=== PATIENT | female | born 2000 | race Hispanic/Latino ===

== ENCOUNTER 2020-04-08 11:30 | Emergency (ER) | payer OTHER, SELFPAY ==
[2020-04-08 11:42] VITALS: BP 127/92; PULSE 110; RESP 16; TEMP 36.6; O2SAT 100
--- NOTE | 2020-04-08 12:07 | ED.WOUNDLAC ---
HPI - Wound/Laceration General Chief Complaint: Wound/Laceration Stated Complaint: Spider bite Time Seen by Provider: 04/08/20 11:40 Source: patient Mode of arrival: ambulatory Limitations: no limitations History of Present Illness HPI narrative: This patient is a 19 year old female who presents for concern of a possible brown recluse bite. She states just prior to coming to ER she saw a brown recluse on her chest . She hit it on her chest and she does not think that it bit her. She is not sure but she does have a red rash and mild swelling to her chest. She denies fever, chills, nausea or vomiting. She reports her rash is a burning pain. Her last tetanus was in 2011. Related Data Allergies Allergy/AdvReac Type Severity Reaction Status Date / Time No Known Allergies Allergy Verified 04/08/20 12:13 Review of Systems Review of Systems: All systems reviewed & are unremarkable except as noted in HPI and below Constitutional: Constitutional: Denies chills and Denies fever(s) Integumentary/Breasts: Skin/Breast: Reports rash PMFSH Past Medical History Medical History (Updated 04/08/20 @ 12:13 by Maraí Amaral MD) Patient denies medical problems Social History Social History Gender identity (if verbalized by the patient): Female Exam Const: General: no acute distress and alert Orientation/consciousness: patient oriented x3 HENMT: Head: normocephalic and atraumatic Face and sinus: face symmetric Throat: posterior oropharynx normal Chest: Other: upper mid chest with erythematous papular rash , with scattered whelp . Resp: Effort & Inspection: normal respiratory effort and no retractions Auscultation: clear to auscultation bilaterally Cardio: Rate: regular rate Rhythm: regular rhythm Heart sounds: no murmurs Neuro: General: patient oriented x3 and moves all extremities Extrem: General: no pedal edema Course Reevaluation(s) Reevaluation #1: I Discussed with patient that this appears to be local reaction. Date: 04/08/20 Time: 12:08 Vital Signs Vital signs: Vital Signs Temperature 97.8 F 04/08/20 11:42 Pulse Rate 110 H 04/08/20 11:42 Respiratory Rate 16 04/08/20 11:42 Blood Pressure 127/92 H 04/08/20 11:42 Pulse Oximetry 100 04/08/20 11:42 Temperature 97.8 F 04/08/20 11:42 Pulse Rate 110 H 04/08/20 11:42 Respiratory Rate 16 04/08/20 11:42 Blood Pressure 127/92 H 04/08/20 11:42 Pulse Oximetry 100 04/08/20 11:42 Discharge Plan Discharge Clinical Impression: Allergic reaction to spider bite Qualifiers: Encounter type: initial encounter Injury intent: accidental or unintentional Qualified Code(s): T63.301A - Toxic effect of unspecified spider venom, accidental (unintentional), initial encounter Patient Disposition: Home, Self-Care Condition: Stable Instructions: Antibiotic Form, Insect Bite or Sting (ED), Brown Recluse Spider Bite (ED) Additional Instructions: Today you were seen for possible spider bite. You appear to have a local reaction to your chest. I recommend you take medication such as benadryl or claritin. You can also place steroid cream to chest. Prescriptions: New cephalexin [Keflex] 500 mg capsule 500 mg PO Q12H Qty: 14 RF: 0 Follow-up/Referrals: Jennifer,NASEEM Aiken [Primary Care Provider] - Discharge Date/Time: 04/08/20 12:35
[2020-04-08] MEDS: TETANUS,DIPHTHERIA,AC PERTUSSIS ADULT (0.5 ML) BOOSTRIX IM (12:30)
== END 2020-04-08 12:35 | disposition home or self-care (01) ==
PROVIDERS: Emergency Provider General Practice; PCP Registered Nurse
DX: T63.331A Toxic effect of venom of brown recluse spider, accidental (unintentional), initial encounter (principal); Z23 Encounter for immunization
CPT/HCPCS: 90471; 90715; 99283

== ENCOUNTER 2020-07-29 12:23 | Emergency (ER) | payer OTHER, SELFPAY ==
[2020-07-29 12:35] VITALS: BP 121/82; PULSE 103; RESP 16; TEMP 37.6; O2SAT 100
--- NOTE | 2020-07-29 12:49 | ED.LOWEXIN ---
HPI - Extremity Injury (Lower) General Chief Complaint: Extremity Injury, Lower Stated Complaint: Left foot Injury Time Seen by Provider: 07/29/20 12:49 Source: patient and RN notes reviewed Mode of arrival: ambulatory Limitations: no limitations History of Present Illness HPI Narrative: 20 year old female who present to express care with complaints of stepping on dirty michael nail about one hour ago. Patient states that nail was michael and dirty, states she cleansed area with antiseptic spray after injury. Patient is concerned about infection and requests antibiotic, states that her tetanus is up to date. Patient has small puncture wound to her left foot below her 4th toe vaughn aspect with mild tenderness on palpation, no drainage noted. MD complaint: foot injury (left) Onset (ago): hour(s) (1) Injury: Left: foot Type of Injury: puncture wound Place: home Severity: mild Relieving factors: rest Exacerbating factors: weight bearing Context: stepped on nail Other symptoms: none Treatments prior to arrival: other (cleansed) Related Data Allergies Allergy/AdvReac Type Severity Reaction Status Date / Time No Known Allergies Allergy Verified 04/08/20 12:13 Review of Systems Review of Systems: Narrative: CONSTITUTIONAL: Denies fever, chills, or sweats. EYES: Denies visual changes, redness, or discharge. ENT: Denies rhinorrhea, congestion, sore throat, or otalgia. CARDIOVASCULAR: Denies chest pain, palpitations, or edema. RESPIRATORY: Denies cough or dyspnea. GASTROINTESTINAL: Denies abdominal pain, nausea, vomiting, or diarrhea. GENITOURINARY: Denies dysuria or hematuria. SKIN: Denies rash or itching.puncture wound to vaughn aspect left foot under 4th toe region, no drainage noted. MUSCULOSKELETAL: Denies back pain, joint pain, or myalgia. NEUROLOGIC: Denies headache, numbness, or weakness. PSYCHIATRIC: Denies anxiety or depression. 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 There is no relevant family history pertinent to the presenting complaint Exam Narrative: Exam Narrative: GENERAL: Well-appearing, well-nourished, and in no acute distress. HEAD: Normocephalic, atraumatic. EYES: PERRLA and EOMI. ENT: Nares clear, no rhinorrhea or epistaxis. Mucous membranes moist. NECK: Supple. CHEST: Clear to auscultation. No respiratory distress. HEART: Regular rate and rhythm. No murmur heard. Normal peripheral pulses. ABDOMEN: Soft, nontender, nondistended, normal active bowel sounds. EXTREMITIES: Normal range of motion. No edema. SKIN: Warm, dry, no rash. tenderness from stepping on nail with left foot, puncture area to left vaughn foot below 4th toe, no drainage or acute redness noted no acute swelling. NEURO: No focal deficits. Alert and oriented x3. Course Vital Signs Vital signs: Vital Signs Temperature 37.6 C H 07/29/20 12:35 Pulse Rate 103 H 07/29/20 12:35 Respiratory Rate 16 07/29/20 12:35 Blood Pressure 121/82 07/29/20 12:35 Pulse Oximetry 100 07/29/20 12:35 Temperature 37.6 C H 07/29/20 12:35 Pulse Rate 103 H 07/29/20 12:35 Respiratory Rate 16 07/29/20 12:35 Blood Pressure 121/82 07/29/20 12:35 Pulse Oximetry 100 07/29/20 12:35 MDM - Extremity Injury (Lower) Differential Diagnosis Differential diagnosis: Likely puncture wound of foot (Left foot skye
== END 2020-07-29 13:03 | disposition home or self-care (01) ==
PROVIDERS: Emergency Provider Registered Nurse; PCP Registered Nurse
DX: S91.332A Puncture wound without foreign body, left foot, initial encounter (principal); W45.0XXA Nail entering through skin, initial encounter
CPT/HCPCS: 99213; G0463

== ENCOUNTER 2020-10-14 17:01 | Emergency (ER) | payer OTHER, SELFPAY ==
[2020-10-14 17:08] VITALS: BP 119/79; PULSE 105; RESP 16; TEMP 37.7; O2SAT 100
--- NOTE | 2020-10-14 17:26 | ED.WOUNDLAC ---
HPI - Wound/Laceration General Chief Complaint: Wound/Laceration Stated Complaint: laceration right index finger Time Seen by Provider: 10/14/20 17:15 Source: patient Mode of arrival: ambulatory Limitations: no limitations History of Present Illness HPI narrative: 20-year-old female who presents to [facility] with complaints of laceration to right middle finger dorsal aspect near DIP which occurred within the past hour at home when she was cleaning her mirror and cut it on edge. Patient has full mobility of her right third finger with no complaints of tingling or numbness to her right third finger, nail bed blanches briskly with finger warm and pink. Patient denies any acute bleeding with bleeding presently under control with bandage to finger. Patient reports that her tetanus shot is UTD. Onset (ago): hour(s) (within past hour) Location: other Extremity Location: Right: hand (right middle finger dorsal near DIP) Place: home Patient tetanus UTD: Yes Context: accidental Associated symptoms: none Treatments prior to arrival: bandage Related Data Allergies Allergy/AdvReac Type Severity Reaction Status Date / Time No Known Allergies Allergy Verified 10/14/20 17:24 Review of Systems Review of Systems: Narrative: CONSTITUTIONAL: Denies fever, chills, or sweats. EYES: Denies visual changes, redness, or discharge. ENT: Denies rhinorrhea, congestion, sore throat, or otalgia. CARDIOVASCULAR: Denies chest pain, palpitations, or edema. RESPIRATORY: Denies cough or dyspnea. GASTROINTESTINAL: Denies abdominal pain, nausea, vomiting, or diarrhea. GENITOURINARY: Denies dysuria or hematuria. SKIN: Denies rash or itching.positive for laceration to right middle finger dorsal aspect at DIP with minimal subcutaneous depth MUSCULOSKELETAL: Denies back pain, joint pain, or myalgia. NEUROLOGIC: Denies headache, numbness, or weakness. PSYCHIATRIC: Positive for anxiety or depression. 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 There is no relevant family history pertinent to the presenting complaint Exam Narrative: Exam Narrative: GENERAL: Well-appearing, well-nourished, and in no acute distress. HEAD: Normocephalic, atraumatic. EYES: PERRLA and EOMI. ENT: Nares clear, no rhinorrhea or epistaxis. Mucous membranes moist.TM's normal with good light reflex, no redness of throat with no lesions or exudates NECK: Supple.no lymphadenopathy CHEST: Clear to auscultation. No respiratory distress. HEART: Regular rate and rhythm. No murmur heard. Normal peripheral pulses. ABDOMEN: Soft, nontender, nondistended, normal active bowel sounds. EXTREMITIES: Normal range of motion. No edema.Positive for laceration to the right middle finger at the DIP joint region dorsally measuring 1.5cm in length, circulation, sensation, and mobility intact to her right middle finger and hand with strong radial pulse. SKIN: Warm, dry, no rash. NEURO: No focal deficits. Alert and oriented x3. Course Vital Signs Vital signs: Vital Signs Temperature 37.7 C H 10/14/20 17:08 Pulse Rate 105 H 10/14/20 17:08 Respiratory Rate 16 10/14/20 17:08 Blood Pressure 119/79 10/14/20 17:08 Pulse Oximetry 100 10/14/20 17:08 Temperature 37.7 C H 10/14/20 17:08 Pulse Rate 105 H 10/14
== END 2020-10-14 18:00 | disposition home or self-care (01) ==
PROVIDERS: Emergency Provider Registered Nurse; PCP Registered Nurse
DX: S61.212A Laceration without foreign body of right middle finger without damage to nail, initial encounter (principal); W25.XXXA Contact with sharp glass, initial encounter
CPT/HCPCS: 12001; 99213; G0463

== ENCOUNTER 2023-10-01 13:12 | Outpatient (RCR) | payer OTHER, SELFPAY ==
[2023-10-01 13:52] LABS: Hematocrit 34.5 % (37.0-47.0); Hemoglobin 11.3 g/dL (12.0-15.0)
[2023-10-01 14:40] LABS: HIV 1/2 Ab P24 Ag Result Negative (Negative)
== END 2023-12-30 23:59 | disposition home or self-care (01) ==
LOC: ANHLAB 13:12
PROVIDERS: PCP Registered Nurse; Visit Provider Obstetrics & Gynecology
DX: Z11.4 Encounter for screening for human immunodeficiency virus [HIV] (principal); O36.0130 Maternal care for anti-D [Rh] antibodies, third trimester, not applicable or unspecified; Z3A.00 Weeks of gestation of pregnancy not specified
CPT/HCPCS: 36415; 85014; 85018; 85461; 86703; 86850; 86900; 86901; G0432